=== PATIENT | male | born 1945 | race Caucasian/White ===

== ENCOUNTER → 2017-01-27 | Outpatient (CLI) | payer MEDICARE ==
--- NOTE | 2017-01-27 15:01 | CT ---
EXAMINATION TYPE: CT abdomen pelvis wo con DATE OF EXAM: 01/27/2017 COMPARISON: NONE HISTORY: incisional hernia CT DLP: 2957.3 mGycm Automated exposure control for dose reduction was used. TECHNIQUE: Helical acquisition of images from the lung bases through the pelvis. FINDINGS: LUNG BASES: No significant abnormality is appreciated. AORTA: No significant abnormality is appreciated. LIVER/GB: Gallbladder shows multiple stones. Liver shows no mass on this noncontrast exam. PANCREAS: No significant abnormality is seen. SPLEEN: No significant abnormality is seen. ADRENALS: No significant abnormality is seen. KIDNEYS: Cortical cyst is present in an exophytic location at the lower pole the right kidney measuri ng 3.6 cm. REPRODUCTIVE ORGANS: No significant abnormality is seen. URINARY BLADDER: Urinary bladder is not distended, there is a thickened wall which may be due to lac k of distention or possibly chronic outlet obstruction, correlate to exclude cystitis. BOWEL: Anterior abdominal wall shows ventral hernia likely related to patient's incision, the hernia appears wide mouth. Postop changes are noted to the colon. Extensive diverticular change present in the sigmoid colon. No evident bowel obstruction. FREE AIR: No Free Air is visible. ASCITES: None visible. PELVIC ADENOPATHY: None visualized. RETROPERITONEAL ADENOPATHY: No Retroperitoneal Adenopathy visible. OSSEOUS STRUCTURES: Degenerative disc changes are present. There is likely disc herniation within th e spinal canal at approximately the L3 level. IMPRESSION: CHOLELITHIASIS. NONCONTRAST EXAM. ANTERIOR ABDOMINAL WALL HERNIA IS WIDE MOUTH. DIVERTICULOSIS. POSTO P CHANGES. PROBABLE DISC HERNIATION LUMBAR SPINE. FINDINGS IN THE BLADDER DESCRIBED.
== END | disposition home or self-care (01) ==
LOC: RADCTMAIN 13:40
PROVIDERS: ATTEND Surgery
DX: K43.9 Ventral hernia without obstruction or gangrene (principal); K80.20 Calculus of gallbladder without cholecystitis without obstruction; Z98.890 Other specified postprocedural states
CPT/HCPCS: 74176

== ENCOUNTER → 2017-02-23 | Outpatient (CLI) | payer MEDICARE ==
[2017-02-23 14:43] LABS: CH 31.3; CHCM 33.6; HDW 2.39; HGB 13.8 gm/dL (13.0-17.5); MCH 31.4 pg (25.0-35.0); MCHC 33.6 g/dL (31.0-37.0); MCV 93.5 fL (80.0-100.0); Mean Platelet Volume 7.3; RBC 4.39 m/uL (4.30-5.90); RDW 12.7 % (11.5-15.5); WBC 6.6 k/uL (3.8-10.6)
== END | disposition home or self-care (01) ==
LOC: LABPAT 13:11
PROVIDERS: ATTEND Surgery
DX: Z01.810 Encounter for preprocedural cardiovascular examination (principal); Z01.812 Encounter for preprocedural laboratory examination
CPT/HCPCS: 85027; 93005

== ENCOUNTER 2017-02-26 06:05 | Day surgery (SDC) | payer MEDICARE ==
[2017-02-23 08:50] VITALS: BMI 47.3
[~2017-02-26 06:05] MED LIST: CLINDAMYCIN 900 MG in DEXTROSE 5% IN WATER 50 ML IVPB ONE; DEXAMETHASONE SOD PHOSPHATE 10 MG/ML 1 ML VIAL IV ONE; GENTAMICIN 520 MG in SODIUM CHLORIDE 0.9% 100 ML IVPB ONE; HEPARIN SODIUM,PORCINE 5,000 UNIT/ML 1 ML VIAL SQ ONE; LACTATED RINGERS 1,000 ML IV SCH; MIDAZOLAM 2 MG/2 ML VIAL IV PRN; ONDANSETRON 4 MG/2 ML VIAL IVP ONE
[2017-02-26] MEDS ORDERED: SUCCINYLCHOLINE CHLORIDE VIAL 200 MG/10 ML VIAL IV ONE (07:30)
[2017-02-26] MEDS ORDERED: ROCURONIUM BROMIDE 10 MG/ML 10 ML VIAL IV ONE (07:30)
[2017-02-26] MEDS ORDERED: PROPOFOL 10 MG/ML 20 ML VIAL IV ONE (07:30)
[2017-02-26] MEDS ORDERED: LIDOCAINE 1% INJ 10MG/ML (20 ML MDV) ONE (07:30)
[2017-02-26] MEDS ORDERED: fentaNYL (PF) 50 MCG/ML 2 ML AMP ONE (07:30)
[2017-02-26] MEDS ORDERED: NEOSTIGMINE 1 MG/ML 10 ML VIAL ONE (07:30)
[2017-02-26] MEDS ORDERED: GLYCOPYRROLATE 0.2 MG/ML 2 ML VIAL ONE (07:30)
[2017-02-26] MEDS ORDERED: BUPIVACAINE-EPI 0.5%-1:200,000 10 ML VIAL SQ ONE (08:13)
[2017-02-26] MEDS ORDERED: LACTATED RINGERS 1,000 ML IV ONE (08:31)
[2017-02-26 09:30] VITALS: TEMP 97.4
[2017-02-26 09:34] VITALS: RESP 16
--- NOTE | 2017-02-26 09:39 | P.OP ---
Date of Procedure: 02/26/17 Preoperative Diagnosis: Chronic calculus cholecystitis Morbid obesity BMI 47 History of colon cancer status post right hemicolectomy Incisional hernia Postoperative Diagnosis: Same Procedure(s) Performed: Lap lysis of adhesions Lap cholecystectomy Implants: NA Anesthesia: GETA local Estimated Blood Loss (ml): 20 Pathology: other Condition: stable Indications for Procedure: 71 years old male presents with chronic calculus cholecystitis. Known incisional hernia status post right hemicolectomy for colon cancer. Informed consent obtained and patient elected to undergo laparoscopic cholecystectomy possible open and all indicated procedure Operative Findings: Multiple adhesions underlying midline incisional hernia containing small bowel and omentum which were taken down using combination of blunt and sharp dissection. Laparoscopic cholecystectomy performed Description of Procedure: The patient was brought to the operating room and placed in supine position with both arms out. General anesthesia with endotracheal intubation was performed as per anesthesia team. Chlorhexidine was used to prep the abdomen followed by application of sterile drapes. A timeout was performed to verify correct patient and correct procedure. Patient was confirmed to receive perioperative IV antibiotics , heparin 5000 units subcutaneous injection and bilateral SCDs were placed. A 5 mm skin incision was made below the left costal margin at the anterior axillary line. A Veress needle was inserted and pneumoperitoneum was established to a pressure of 15 mmHg. A 5 mm Optiview trocar was loaded on a 5 mm 30 laparoscope and the peritoneal cavity was entered under direct vision using the Optiview technique. Dense adhesions between small bowel, omentum and hernia noted in the anterior abdominal wall. Dissection was carried out to remove all the small bowel and omentum from the hernia sac. Additional 5 mm trocar was placed in the supraumbilical location and two 5 mm trocars along the right subcostal margin. The left 5 mm trocar was upsized to 10mm. The patient was placed in reverse Trendelenburg with right side up. The fundus of the gallbladder was grasped with an atraumatic grasper and was retracted over the dome of the liver. The infundibulum was grasped with an atraumatic grasper and retracted towards the pelvis to expose the Calot's triangle. Lateral and medial peritoneal attachment of the gallbladder bladder was dissected. Circumferential dissection was carried out around the cystic artery and the cystic duct to obtain adequate length for clip application. All the surrounding fibrofatty tissue were removed. Critical view was obtained with cystic duct and cystic artery as the only two structures entering the gallbladder. Two clips were applied on the patient's side and one on the specimen side on the cystic duct first followed by the cystic artery. Endoshears were used to divide the cystic duct and the cystic artery. The gallbladder was taken off the liver bed using a L-hook. It was placed in an endocatch specimen bag and removed through the 10mm port. The gallbladder was passed off as a specimen. The abdominal cavity was inspected. The clips on the cystic duct and cystic artery stump were intact and no bleeding noted from the liver bed. All the trocar sites were examined and no evidence of bleeding. The 10mm port site was closed with two transfascial sutures of 0 Vicryl using a Sharif Sarah device. The pneumoperitoneum was evacuated and all the trocars were removed. Local anesthetic was infiltrated along the trocar sites and incisions were closed using 4-0 Monocryl followed by application of Dermabond skin glue. The sponge, instrument and needle count were correct x2. Patient was extubated and taken to post anesthesia care unit in stable condition.
[2017-02-26] MEDS: HYDROmorphone 1 MG/ML 1 ML SYRINGE IVP PRN ×3 (09:47→09:54)
[2017-02-26] MEDS ORDERED: KETOROLAC 30 MG/ML 1 ML VIAL IVP ONE (09:58)
[2017-02-26] MEDS ORDERED: HYDROcodone/APAP 5-325MG 1 EACH TAB PO ONE (10:41)
[2017-02-26 11:32] VITALS: BP 114/50; PULSE 83
== END 2017-02-26 12:19 | disposition home or self-care (01) ==
LOC: OR 06:05
PROVIDERS: ATTEND Surgery
DX: K80.10 Calculus of gallbladder with chronic cholecystitis without obstruction (principal); K66.0 Peritoneal adhesions (postprocedural) (postinfection); Z85.038 Personal history of other malignant neoplasm of large intestine; Z90.49 Acquired absence of other specified parts of digestive tract; J45.909 Unspecified asthma, uncomplicated; G47.33 Obstructive sleep apnea (adult) (pediatric); Z99.89 Dependence on other enabling machines and devices; E07.9 Disorder of thyroid, unspecified; E66.01 Morbid (severe) obesity due to excess calories; Z68.42 Body mass index [BMI] 45.0-49.9, adult; Z79.899 Other long term (current) drug therapy; Z88.5 Allergy status to narcotic agent; Z88.0 Allergy status to penicillin; Z88.2 Allergy status to sulfonamides; Z91.040 Latex allergy status
CPT/HCPCS: 88304; 47562; J0330; J1644; J1100; J2710; J2405; J2001; J3010; J1885; J1580; J1170; J2704

== ENCOUNTER → 2017-05-06 | Outpatient (CLI) | payer MEDICARE ==
[2017-05-06 16:06] LABS: CH 30.8; CHCM 32.5; HCT 42.2 % (39.0-53.0); HDW 2.21; HGB 13.6 gm/dL (13.0-17.5); MCH 30.8 pg (25.0-35.0); MCHC 32.2 g/dL (31.0-37.0); MCV 95.5 fL (80.0-100.0); Mean Platelet Volume 7.4; RBC 4.42 m/uL (4.30-5.90); RDW 13.7 % (11.5-15.5); WBC 7.3 k/uL (3.8-10.6)
== END | disposition home or self-care (01) ==
LOC: LABPAT 15:25
PROVIDERS: ATTEND Surgery
DX: Z01.812 Encounter for preprocedural laboratory examination (principal)
CPT/HCPCS: 36415; 85027; 86850; 86900; 86901

== ENCOUNTER 2017-05-11 10:42 | Day surgery (SDC) | payer MEDICARE ==
[2017-05-06 12:58] VITALS: BMI 44.7
--- NOTE | 2017-05-11 08:11 | P.GSHP ---
History of Present Illness H&P Date: 05/11/17 Chief Complaint: Incisional hernia 71 yrs old male S/P lap right hemicolectomy in 2013 presents with incisional hernia. He has had surveillance colonoscopy and were all normal. He is morbidly obese with BMI 44.8. S/P lap amira . Patient presents today for hernia repair . ROS Constitutional: No fever, chills or rigors. No weight loss or loss of appetite. HEENT: No difficulty with hearing, vision and swallowing. Lymphatic: No axillary, inguinal and cervical swellings. Endocrine: No thyroid disorders. Denies history of diabetes. Respiratory: No chest pain, shortness of breath, and cough. No hemoptysis. Has asthma Cardiovascular: No palpitations, irregular HR Gastrointestinal: Denies heartburn. No change in bowel habits. No nausea or vomiting. Genitourinary: No increase in urinary frequency or urgency. No hematuria. Musculoskeletal: No back pain, joint stiffness or pain. Neurologic: No history of seizure disorder and headaches. Psychiatric: Denies depression or anxiety . No suicidal ideation. Hematologic: Denies any abnormal mucosal bleeding or easy bruising. Physical Exam Patient is a 71-year-old male. Constitutional: General Appearance: morbidly obese. Level of Distress: NAD. Ambulation: ambulating normally. Psychiatric: Insight: good judgement. Orientation: to time, place, and person. Head: Head: normocephalic and atraumatic. Eyes: Lids and Conjunctivae: no discharge or pallor and non-injected. Sclerae: non-icteric. ENMT: Oropharynx: moist mucous membranes. Abdomen: Bowel Sounds: normal. Inspection and Palpation: no tenderness or guarding and soft and non-distended. Hernia: incisional. Musculoskeletal:: Motor Strength and Tone: normal and normal tone. Joints, Bones , and Muscles: normal movement of all extremities. Extremities: no cyanosis or edema. Neurologic: Gait and Station: normal gait and station. Cranial Nerves: grossly intact. Assessment / Plan 1. CT scan abd /pelvis to better delineate hernia anatomy- reviewed 2. Weight loss prior to surgery. High risk of recurrence with morbid obesity. Last 20 lbs with diet and lifestyle changes 3. Surgical weight loss options discussed - not interested in bariatric surgery 4. Robotic assist lap incisional hernia repair with mesh possible open, lysis of adhesions and all indicated procedure 5. Risks, benefits and potential complications explained including bleeding, infection, hernia recurrencer 6. Post op care discussed including no heavy lifting more than 10 lbs post surgery 1. Ventral incisional hernia of anterior abdominal wall without obstruction AND without gangrene K43.9: Ventral hernia without obstruction or gangrene 2. Body mass index 40+ - severely obese Z68.43: Body mass index (BMI) 50-59.9 , adult 3. Asthma J45.909: Unspecified asthma, uncomplicated CONTROLLING YOUR ASTHMA: CARE INSTRUCTIONS LEARNING ABOUT ASTHMA 4. History of malignant neoplasm of colon Z85.038: Personal history of other malignant neoplasm of large intestine 5. Cholelithiasis without obstruction K80.20: Calculus of gallbladder without cholecystitis without obstruction . Past Medical History Past Medical History: GERD/Reflux, Osteoarthritis (OA), Sleep Apnea/CPAP/BIPAP Additional Past Medical History / Comment(s): C-PAP MACHINE, SEASONAL ALLERGIES. , CONSTIPATION., LOW IRON., BILATERAL HEARING AIDS., STATES ON HIGH PROTEIN DIET AND HAS 36 # WT LOSS IN THE LAST 3 MONTHS. History of Any Multi-Drug Resistant Organisms: None Reported Past Surgical History: Appendectomy, Bowel Resection, Cholecystectomy Additional Past Surgical History / Comment(s): SINUS SURG. VASECTOMY, colonoscopy, bowel resection due to benign mass in colon Past Anesthesia/Blood Transfusion Reactions: Postoperative Nausea & Vomiting ( PONV) Smoking Status: Never smoker - Past Family History Mother Family Medical History: No Reported History Brother(s) Family Medical History: Cancer Additional Family Medical History / Comment(s): skin cancer Medications and Allergies Home Medications Medication Instructions Recorded Confirmed Type Fexofenadine HCl [Claire Allergy] 180 mg PO DAILY 12/05/13 05/06/17 History Montelukast Sodium [Singulair] 10 mg PO DAILY 12/05/13 05/06/17 History Multivitamin [Men's Multi-Vitamin] 1 each PO DAILY 12/05/13 05/06/17 History Cholecalciferol [Vitamin D3] 2,000 unit PO DAILY #0 01/03/14 05/06/17 History Triamcinolone Acetonide [Nasacort] 10.8 ml NS DAILY 01/08/15 05/06/17 History Ferrous Sulfate [Iron] 325 mg PO DAILY 02/23/17 05/06/17 History Docusate [Colace] 100 mg PO BID 05/06/17 05/06/17 History Allergies Allergy/AdvReac Type Severity Reaction Status Date / Time amoxicillin trihydrate Allergy Anaphylaxis Verified 05/06/17 11:39 [From Augmentin] iodine Allergy ASSOCIATION Verified 05/06/17 11:39 D/T SHELLFISH REACTION Latex, Natural Rubber Allergy Rash/Hives Verified 05/06/17 11:39 potassium clavulanate Allergy Anaphylaxis Verified 05/06/17 11:39 [From Augmentin] shellfish derived Allergy Swelling Verified 05/06/17 11:39 Sulfa (Sulfonamide Allergy Rash/Hives Verified 05/06/17 11:39 Antibiotics)
[~2017-05-11 10:42] MED LIST changes: -GENTAMICIN 520 MG in SODIUM CHLORIDE 0.9% 100 ML IVPB ONE; +HYDROmorphone 2 MG/ML 1 ML SYRINGE IVP PRN; -LACTATED RINGERS 1,000 ML IV SCH; +LEVOFLOXACIN 500MG-D5W PMX 500 MG in DEXTROSE/WATER 1 100ML.BAG IVPB ONE; -ONDANSETRON 4 MG/2 ML VIAL IVP ONE
[2017-05-11] MEDS ORDERED: LIDOCAINE 1% 20 ML VIAL (10MG/ML) FOR IV START INTRADERMA ONE (11:43)
[2017-05-11] MEDS: LACTATED RINGERS 1,000 ML IV SCH (11:43)
[2017-05-11] MEDS: ONDANSETRON 4 MG/2 ML VIAL IVP ONE ×3 (11:43→18:41)
[2017-05-11] MEDS ORDERED: MIDAZOLAM 2 MG/2 ML VIAL ONE (12:24)
[2017-05-11] MEDS ORDERED: PROPOFOL 10 MG/ML 20 ML VIAL IV ONE (12:24)
[2017-05-11] MEDS ORDERED: LIDOCAINE 1% INJ 10MG/ML (20 ML MDV) ONE (12:24)
[2017-05-11] MEDS ORDERED: WATER FOR INJECTION, STERILE 10 ML VIAL IV ONE (12:24)
[2017-05-11] MEDS ORDERED: ePHEDrine SULFATE/0.9% NACL/PF 50 MG/5 ML SYRINGE IV ONE (12:24)
[2017-05-11] MEDS ORDERED: KETAMINE 10 MG/ML 20 ML VIAL ONE (12:24)
[2017-05-11] MEDS ORDERED: NEOSTIGMINE 1 MG/ML 10 ML VIAL ONE (12:24)
[2017-05-11] MEDS ORDERED: fentaNYL (PF) 50 MCG/ML 2 ML AMP ONE (12:24)
[2017-05-11] MEDS ORDERED: VECURONIUM 10 MG VIAL IV ONE (12:24)
[2017-05-11] MEDS ORDERED: GLYCOPYRROLATE 0.2 MG/ML 2 ML VIAL ONE (12:24)
[2017-05-11] MEDS ORDERED: HYDROmorphone (PF) 1 MG/ML ONE (12:24)
[2017-05-11] MEDS ORDERED: SUCCINYLCHOLINE CHLORIDE VIAL 200 MG/10 ML VIAL IV ONE (12:24)
[2017-05-11] MEDS ORDERED: BUPIVACAINE-EPI 0.5%-1:200,000 10 ML VIAL SQ ONE (13:08)
[2017-05-11] MEDS ORDERED: LACTATED RINGERS 1,000 ML IV ONE (14:27)
[2017-05-11] MEDS ORDERED: ONDANSETRON 4 MG/2 ML VIAL IVP PRN (16:41)
--- NOTE | 2017-05-11 16:43 | P.OP ---
Date of Procedure: 05/11/17 Preoperative Diagnosis: Incisional hernia Morbid obesity BMI 44.8 Postoperative Diagnosis: Incarcerated incisional hernia containing omentum The hernia defect was 15 x 8 cm Procedure(s) Performed: Robotic-assisted laparoscopic lysis of adhesions for 15 minutes Robotic assist laparoscopic incisional hernia repair with mesh Implants: Ventralight ST mesh with PS Positioning system 20x10 cm Anesthesia: OMER Surgeon: Malini Hood Pathology: none sent Condition: stable Disposition: PACU Indications for Procedure: 71 years old male with prior history of colon cancer status post right colectomy , status post-laparoscopic cholecystectomy with incarcerated incisional hernia. Informed consent obtained and patient elected to undergo robotic-assisted laparoscopic lysis of adhesions and incisional hernia repair with mesh Operative Findings: Large incisional hernia with Iraqi cheese like defect containing incarcerated omentum Description of Procedure: The patient was brought to the operating room and placed in supine position. General anesthesia with endotracheal intubation was performed as per anesthesia team. The right arm was tucked against the body and a footboard was applied. Chlorhexidine was used to prep the skin followed by application of sterile drapes and Ioban dressing. A timeout was performed to verify correct patient and correct procedure. Patient was confirmed to receive perioperative IV antibiotics , bilateral SCDs and 5000 units of subcutaneous heparin for VTE prophylaxis. A 5 mm skin incision was made along the left midaxillary line and a Veress needle was inserted to establish the pneumoperitoneum to a pressure of 15 mm of Hg. Using a 5 mm 30 laparoscope the peritoneal cavity was entered using the Optiview technique. Additional 12 mm trocar was placed in the mid axillary line in the left mid abdomen and robotic 8 mm trocar in the left lower abdomen. The 5 mm trocar was upsized to 8 mm robotic trocar. The da Emanuel robot was then docked. The 30 robotic camera was used. A robotic prograsp and monopolar scissors were inserted through 8 mm robotic trocars The hernia defect was large 10 by 15 cm ,contained preperitoneal fat and incarcerated omentum which were reduced using vessel sealer device. The hernia defect had multiple uruguayan cheese like defects The midline was closed primarily with running sutures using O- V lock by taking 1 cm bite on the fascia on either side of the defect. Bard 20x10 cm mesh with PS positioning system was introduced into the peritoneal cavity A Sharif Sarah device was inserted through the middle of the hernia defect and the stay suture on the mesh was grasped to elevate the mesh against the anterior abdominal wall. The mesh was circumferentially sutured to the peritoneum of the anterior abdominal wall using 2-0 V lock without any folds or kinks. The robot was then undocked. Laparoscopic 30 degrees camera was reinserted. All trocar sites were examined. No evidence of bleeding. The 12 mm trocar site was closed using two transfascial sutures of 0 Vicryl which were placed using a Sharif Sarah device. The pneumoperitoneum was evacuated and all the skin incisions were closed using 4-0 Monocryl followed by Dermabond skin glue. Telfa and Tegaderm dressings were applied. The sponge, instrument and needle count were correct x2. Abdominal binder was applied. The patient was extubated and taken to post anesthesia care unit in stable condition.
[2017-05-11] MEDS ORDERED: METOCLOPRAMIDE 5 MG/ML 2 ML VIAL IVP ONE (17:46)
[2017-05-11] MEDS: SODIUM CHLORIDE 0.9% 1,000 ML IV SCH (18:45)
[2017-05-11] MEDS: ACETAMINOPHEN IV (For NPO) 1,000 MG in EMPTY BAG 1 BAG IVPB SCH (18:47)
[2017-05-11] MEDS: HYDROmorphone 2 MG/ML 1 ML SYRINGE IVP PRN (21:54)
[2017-05-12] MEDS: ACETAMINOPHEN IV (For NPO) 1,000 MG in EMPTY BAG 1 BAG IVPB SCH ×3 (02:17→12:28)
[2017-05-12 04:23] VITALS: RESP 18
[2017-05-12] MEDS: SODIUM CHLORIDE 0.9% 1,000 ML IV SCH (04:28)
[2017-05-12] MEDS: LACTATED RINGERS 1,000 ML IV SCH (04:29)
[2017-05-12] MEDS: HYDROmorphone 2 MG/ML 1 ML SYRINGE IVP PRN (04:38)
[2017-05-12 08:24] VITALS: BP 159/85; PULSE 95; TEMP 97.5
--- NOTE | 2017-05-12 11:47 | P.DS ---
Providers Expected date of discharge: 05/12/17 Attending physician: Malini Hood Primary care physician: [facility] Course: 71-year-old male presented to undergo robotic-assisted laparoscopic lysis of adhesions with incisional hernia repair with mesh done on May 11 . no Postop events .patient has a history of colon cancer status post right colectomy, cholecystectomy, incarcerated incisional hernia repairs. patient has had a surveillance colonoscopy which was normal. Patient also is morbidly obese with a BMI of 44 the day of discharge patient was felt to be clinically stable and appropriate to proceed with a discharge was up ambulating with no difficulty pain medication effective for pain control incisional hernia site no signs of redness no tenderness Impression discharge diagnosis history of a lap right hemicolectomy in 2013 Surveillance colonoscopies normal Morbid obesity BMI 44 incarcerated incisional hernia containing omentum Robotic-assisted laparoscopic lysis of adhesions for 15 minutes, incisional hernia repair with mesh done on May 11 The above impression and plan of care have been discussed and directed by signing physician. Sandra Hassan nurse practitioner acting as scribe for signing physician. Plan - Discharge Summary New Discharge Prescriptions: New Docusate [Colace] 100 mg PO BID #30 capsule Hydrocodone/Acetaminophen [[place] 5-325] 1 each PO Q4HR PRN #30 tab PRN Reason: Pain Continue Montelukast Sodium [Singulair] 10 mg PO DAILY Fexofenadine HCl [Claire Allergy] 180 mg PO DAILY Multivitamin [Men's Multi-Vitamin] 1 each PO DAILY Cholecalciferol [Vitamin D3] 2,000 unit PO DAILY #0 Triamcinolone Acetonide [Nasacort] 10.8 ml NS DAILY Ferrous Sulfate [Iron] 325 mg PO DAILY Docusate [Colace] 100 mg PO BID Discharge Medication List Fexofenadine HCl [Claire Allergy] 180 mg PO DAILY 12/05/13 [History] Montelukast Sodium [Singulair] 10 mg PO DAILY 12/05/13 [History] Multivitamin [Men's Multi-Vitamin] 1 each PO DAILY 12/05/13 [History] Cholecalciferol [Vitamin D3] 2,000 unit PO DAILY #0 01/03/14 [History] Triamcinolone Acetonide [Nasacort] 10.8 ml NS DAILY 01/08/15 [History] Ferrous Sulfate [Iron] 325 mg PO DAILY 02/23/17 [History] Docusate [Colace] 100 mg PO BID 05/06/17 [History] Docusate [Colace] 100 mg PO BID #30 capsule 05/11/17 [Rx] Hydrocodone/Acetaminophen [[place] 5-325] 1 each PO Q4HR PRN #30 tab 05/11/17 [Rx] Follow up Appointment(s)/Referral(s): Malini Hood MD [STAFF PHYSICIAN] - 05/18/17 Activity/Diet/Wound Care/Special Instructions: No lifting over 4 pounds until seen in the follow-up visit Shower daily no tube bath Report any redness at surgical sites fever chills increased abdominal pain Colace as needed for constipation Discharge Disposition: HOME SELF-CARE
== END 2017-05-12 14:36 | disposition home or self-care (01) ==
LOC: OR 10:42 → 3OBS 16:13 → OR 05-12 14:36
PROVIDERS: ATTEND Surgery
DX: K43.0 Incisional hernia with obstruction, without gangrene (principal); Z85.038 Personal history of other malignant neoplasm of large intestine; Z90.49 Acquired absence of other specified parts of digestive tract; E66.01 Morbid (severe) obesity due to excess calories; Z68.41 Body mass index [BMI] 40.0-44.9, adult; J45.909 Unspecified asthma, uncomplicated; K80.20 Calculus of gallbladder without cholecystitis without obstruction; K21.9 Gastro-esophageal reflux disease without esophagitis; M19.90 Unspecified osteoarthritis, unspecified site; G47.33 Obstructive sleep apnea (adult) (pediatric); Z99.89 Dependence on other enabling machines and devices; Z79.899 Other long term (current) drug therapy; Z88.1 Allergy status to other antibiotic agents; Z91.040 Latex allergy status; Z91.013 Allergy to seafood; Z88.2 Allergy status to sulfonamides; Z91.09 Other allergy status, other than to drugs and biological substances; Z79.891 Long term (current) use of opiate analgesic
CPT/HCPCS: 49655; C1781; J2250; J0330; J1170 ×3; J1644; J1100; J2710; J2765; J2405 ×2; J1956; J2001; J3010; J0131; J2704; 86850; 86900; 86901

== ENCOUNTER 2018-01-24 09:53 | Day surgery (SDC) | payer MEDICARE ==
[2018-01-19 12:42] VITALS: BMI 44.4
--- NOTE | 2018-01-24 07:19 | P.GSHP ---
History of Present Illness H&P Date: 01/24/18 CHIEF COMPLAINT: Colon screen HISTORY OF PRESENT ILLNESS: The patient is a 72-year-old male who presents for colon screen. Lower endoscopy was offered for further evaluation and management. PAST MEDICAL HISTORY: Please see list. PAST SURGICAL HISTORY: Please see list. MEDICATIONS: Please see list. ALLERGIES: Please see list. SOCIAL HISTORY: No illicit drug use FAMILY HISTORY: No reports of Crohn disease or ulcerative colitis. REVIEW OF ORGAN SYSTEMS: CONSTITUTIONAL: No reports of fevers or chills. PHYSICAL EXAM: VITAL SIGNS: Stable GENERAL: Well-developed pleasant in no acute distress. HEENT: No scleral icterus. Extraocular movements grossly intact. Moist buccal mucosa. NECK: Supple without lymphadenopathy. CHEST: Unlabored respirations. Equal bilateral excursions. CARDIOVASCULAR: Regular rate and rhythm. Distal 2+ pulses. ABDOMEN: Soft, nontender, nondistended. MUSCULOSKELETAL: No clubbing, cyanosis, or edema. ASSESSMENT: 1. Colon screen. PLAN: 1. Recommend proceeding with a lower endoscopy Past Medical History Past Medical History: GERD/Reflux, Osteoarthritis (OA), Sleep Apnea/CPAP/BIPAP Additional Past Medical History / Comment(s): C-PAP MACHINE, SEASONAL ALLERGIES. , CONSTIPATION., LOW IRON., BILATERAL HEARING AIDS., History of Any Multi-Drug Resistant Organisms: None Reported Past Surgical History: Appendectomy, Bowel Resection, Cholecystectomy, Hernia Repair Additional Past Surgical History / Comment(s): SINUS SURG. VASECTOMY, colonoscopy, bowel resection due to benign mass in colon Past Anesthesia/Blood Transfusion Reactions: Postoperative Nausea & Vomiting ( PONV) Smoking Status: Never smoker - Past Family History Mother Family Medical History: No Reported History Brother(s) Family Medical History: Cancer Additional Family Medical History / Comment(s): skin cancer Medications and Allergies Home Medications Medication Instructions Recorded Confirmed Type Fexofenadine HCl [Claire Allergy] 180 mg PO DAILY 12/05/13 01/19/18 History Montelukast Sodium [Singulair] 10 mg PO HS 12/05/13 01/19/18 History Multivitamin [Men's Multi-Vitamin] 1 each PO DAILY 12/05/13 01/19/18 History Triamcinolone Acetonide [Nasacort] 10.8 ml NS DAILY 01/08/15 01/19/18 History Ferrous Sulfate [Iron] 325 mg PO DAILY 02/23/17 01/19/18 History Allergies Allergy/AdvReac Type Severity Reaction Status Date / Time amoxicillin trihydrate Allergy Anaphylaxis Verified 01/19/18 12:38 [From Augmentin] iodine Allergy ASSOCIATION Verified 01/19/18 12:38 D/T SHELLFISH REACTION Latex, Natural Rubber Allergy Rash/Hives Verified 01/19/18 12:38 potassium clavulanate Allergy Anaphylaxis Verified 01/19/18 12:38 [From Augmentin] shellfish derived Allergy Swelling Verified 01/19/18 12:38 Sulfa (Sulfonamide Allergy Rash/Hives Verified 01/19/18 12:38 Antibiotics)
[~2018-01-24 09:53] MED LIST changes: -CLINDAMYCIN 900 MG in DEXTROSE 5% IN WATER 50 ML IVPB ONE; -DEXAMETHASONE SOD PHOSPHATE 10 MG/ML 1 ML VIAL IV ONE; -HEPARIN SODIUM,PORCINE 5,000 UNIT/ML 1 ML VIAL SQ ONE; -HYDROmorphone 2 MG/ML 1 ML SYRINGE IVP PRN; +LACTATED RINGERS 1,000 ML IV SCH; -LEVOFLOXACIN 500MG-D5W PMX 500 MG in DEXTROSE/WATER 1 100ML.BAG IVPB ONE; +LIDOCAINE 1% 20 ML VIAL (10MG/ML) FOR IV START INTRADERMA PRN; -MIDAZOLAM 2 MG/2 ML VIAL IV PRN
[2018-01-24 10:32] VITALS: TEMP 97.1
[2018-01-24] MEDS ORDERED: PROPOFOL 10 MG/ML 20 ML VIAL IV ONE (12:16)
--- NOTE | 2018-01-24 12:59 | P.PCN ---
Date of Procedure: 01/24/18 Description of Procedure: PREOPERATIVE DIAGNOSIS: History of malignant colon polyp History of right hemicolectomy due to malignant colon polyp Morbid obesity due to excess calories BMI 44.5 POSTOPERATIVE DIAGNOSIS: History of malignant colon polyp History of right hemicolectomy due to malignant colon polyp Morbid obesity due to excess calories BMI 44.5 Diverticulosis, scattered. OPERATION: Colonoscopy to the ascending colon, history of right hemicolectomy SURGEON: Kristan Casas MD. ANESTHESIA: MAC. INDICATIONS: The patient is a 72-year-old male who presents for colonoscopy surveillance due to malignant colon polyp 3 years ago. Benefits and risks were described and informed consent was obtained. DESCRIPTION OF PROCEDURE: The patient had undergone Gatorade, MiraLAX and Dulcolax prep. He had been brought into the operating room and laid in the left lateral decubitus position. The prostate was smooth without abnormality After adequate intravenous sedation, the rectum was examined with 2% lidocaine jelly. No external hemorrhoids were encountered. The rectal tone was within normal limits. No lesions were palpated in the rectal vault. An Olympus colonoscope was advanced until ascending colon was viewed. The prep was good. The scope was removed with visualization of each mucosal fold. Scattered diverticulosis was encountered. No colonic polyps were found. No evidence of focal colitis was found. Retroflexion of the scope demonstrated no internal hemorrhoids without active bleeding or inflammation. The colon was desufflated. The patient had tolerated the procedure well. Withdrawal time was over 6 minutes. FINDINGS: No internal hemorrhoids No external prolapsed hemorrhoids. No arteriovenous malformations. No adenomatous polyps. No focal colitis. History of right hemicolectomy RECOMMENDATIONS: Lower endoscopy in one year, 2019 Plan - Discharge Summary New Discharge Prescriptions: No Action Montelukast Sodium [Singulair] 10 mg PO HS Fexofenadine HCl [Claire Allergy] 180 mg PO DAILY Multivitamin [Men's Multi-Vitamin] 1 each PO DAILY Triamcinolone Acetonide [Nasacort] 10.8 ml NS DAILY Ferrous Sulfate [Iron] 325 mg PO DAILY Discharge Medication List Fexofenadine HCl [Claire Allergy] 180 mg PO DAILY 12/05/13 [History] Montelukast Sodium [Singulair] 10 mg PO HS 12/05/13 [History] Multivitamin [Men's Multi-Vitamin] 1 each PO DAILY 12/05/13 [History] Triamcinolone Acetonide [Nasacort] 10.8 ml NS DAILY 01/08/15 [History] Ferrous Sulfate [Iron] 325 mg PO DAILY 02/23/17 [History] Patient Instructions/Handouts: *Sur[facility] - (Anesthesia) Endoscopy Discharge Instructions, Colonoscopy (DC) Activity/Diet/Wound Care/Special Instructions: REST TODAY NO DRIVING TODAY.
[2018-01-24 13:05] VITALS: BP 129/80; PULSE 68; RESP 18
== END 2018-01-24 13:17 | disposition home or self-care (01) ==
LOC: ORWHC2ENDO 09:53
PROVIDERS: ATTEND Surgery Plastic and Reconstructive Surgery
DX: Z12.11 Encounter for screening for malignant neoplasm of colon (principal); K57.30 Diverticulosis of large intestine without perforation or abscess without bleeding; Z85.038 Personal history of other malignant neoplasm of large intestine; Z90.49 Acquired absence of other specified parts of digestive tract; E66.01 Morbid (severe) obesity due to excess calories; Z68.41 Body mass index [BMI] 40.0-44.9, adult; K21.9 Gastro-esophageal reflux disease without esophagitis; M19.90 Unspecified osteoarthritis, unspecified site; G47.33 Obstructive sleep apnea (adult) (pediatric); J30.2 Other seasonal allergic rhinitis; Z99.89 Dependence on other enabling machines and devices; Z79.51 Long term (current) use of inhaled steroids; Z79.899 Other long term (current) drug therapy; Z91.040 Latex allergy status; Z88.0 Allergy status to penicillin; Z91.013 Allergy to seafood; Z88.2 Allergy status to sulfonamides; Z91.09 Other allergy status, other than to drugs and biological substances
CPT/HCPCS: J2704; G0105

== ENCOUNTER → 2018-11-18 | Outpatient (CLI) | payer MEDICARE ==
[2018-11-18 19:56] LABS: Peanut IgE <0.10 kU/L
[2018-11-18 19:57] LABS: Walnut IgE (Food) <0.10 kU/L
[2018-11-22 06:46] LABS: Crab IgE 2.37 kU/L (<0.35); Crab IgE Class CLASS II
[2018-11-22 06:47] LABS: Gluten IgE Class CLASS 0; Latex IgE Class CLASS 0; Lobster IgE 3.54 kU/L (<0.35); Lobster IgE Class CLASS III; Salmon IgE <0.35 kU/L (<0.35); Salmon IgE Class CLASS 0; Yeast Bakers/Brew IgE <0.35 kU/L (<0.35)
== END | disposition home or self-care (01) ==
LOC: LABWHC1 11:19
PROVIDERS: ATTEND Otolaryngology
DX: J30.89 Other allergic rhinitis (principal)
CPT/HCPCS: 36415; 86003